=== PATIENT | female | born 1955 | race Hispanic/Latino ===

== ENCOUNTER 2019-07-17 08:42 | Outpatient (CLI) | payer OTHER ==
--- NOTE | 2019-07-17 09:42 | Ultrasound Report ---
COMPLETE LEFT BREAST ULTRASOUND HISTORY: Persistent mammographic asymmetries. COMPARISON: 07/12/2019 mammogram FINDINGS: Complete sonographic evaluation including imaging of the four quadrants and subareolar aspe ct of the left breast demonstrates numerous benign cysts and no solid mass or shadowing. A cluster of benign cysts within an area of fibrocystic change measures approximately 2.3 x 1.5 cm. Largest cys t in the cluster measures 4 mm. at 4:00 5 cm from the nipple IMPRESSION: Numerous benign cysts and no suspicious finding. Recommend routine screening in one year. BIRADS 2: Benign Signer Name: David Gaytan MD Signed: 07/17/2019 9:38 AM Workstation Name: [id number]
== END 2019-07-17 08:43 | disposition home or self-care (01) ==
LOC: SPVWC 08:42
PROVIDERS: ATTEND Surgery
DX: N60.02 Solitary cyst of left breast (principal)